=== PATIENT | female | born 1990 ===

== ENCOUNTER 2023-11-01 15:55 | Emergency (ER) | payer SELFPAY ==
[2023-11-01 16:14] VITALS: PULSE 92
[2023-11-01] MEDS: Lidocaine 4% 1 each Patch TOP STA (17:01)
== END 2023-11-01 18:12 | disposition home or self-care (01) ==
LOC: MW.ED 15:55
DX: S29.012A Strain of muscle and tendon of back wall of thorax, initial encounter (principal); Z88.0 Allergy status to penicillin; Z91.040 Latex allergy status; Z75.8 Other problems related to medical facilities and other health care; Z79.899 Other long term (current) drug therapy; X50.0XXA Overexertion from strenuous movement or load, initial encounter; Y93.89 Activity, other specified
CPT/HCPCS: 71046; 73030; 81025; 99283; A9270